=== PATIENT | male | born 1945 | race African-American/Black ===

== ENCOUNTER 2017-02-16 18:25 | Inpatient (IN) | payer MEDICARE, MEDICAID ==
[~2017-02-16] VITALS: Ht 177.8 cm; Wt 72.6 kg
[2017-02-16 18:25] VITALS: BP 156/86
[~2017-02-16 18:25] MED LIST: ATARAX25 MG ORAL; DIABETA5 MG ORAL; DIGOXIN125 MCG ORAL; HYDRALAZINE HCL50 MG ORAL; HYDROCHLOROTHIA25 MG ORAL; LEVEMIR100 UNIT/1 SUBQ; LIPITOR20 MG ORAL; LISINOPRIL40 MG ORAL; MAGNESIUM OXID400 M1 ORAL; METFORMIN HCL850 M1 ORAL; MILK OF MA400 MG/51 ORAL; MYLANTA30 M1 GT; NITROSTAT0.4 M1 SL; NORVASC10 MG ORAL; PLAVIX75 MG ORAL; POTASSIUM CHLO20 ME1 ORAL; RISPERDAL2 MG ORAL; TYLENOL325 MG ORAL
[2017-02-16] MEDS ORDERED: Mylanta II UD 30ml ORAL PRN (19:30)
[2017-02-16] MEDS ORDERED: Miralax 17gm pkt ORAL PRN (19:30)
[2017-02-16] MEDS ORDERED: Nitroglycerin Subl 0.4mg tab (Bottle Of 25) SL PRN (19:30)
[2017-02-16] MEDS ORDERED: LORazepam Inj 2mg/ml 1ml IV PRN (19:30)
[2017-02-16] MEDS ORDERED: Zolpidem 5mg tab ORAL PRN (19:30)
[2017-02-16] MEDS ORDERED: Morphine Sulfate 2mg/ml Inj IVP PRN (19:30)
--- NOTE | 2017-02-16 20:10 | Emergency Room Report ---
History of Present Illness General Chief Complaint: Pain Source: Medical Record Present Illness HPI 71 YO Male [facility] the ED from [facility] c/o 03/31 in low back pain x 2 weeks with abnormal x-ray showing lumbar compression. pt. states he fell onto his back over a week ago. pt. reports pain worse with walking and laying flat at night. pt. denies numbness or tingling in the extremities, denies difficulty urinating or abdominal pain. pt. denies fevers or chills. Pt. has hx of HTN, schizoaffective disorder, hyperlipidemia and DM. denies hx of neoplastic disease. Denies numbness tingling or loss of sensation or gross motor movements of the extremities, incontinence of bowel or bladder. Denies CP, Palpitations, LOC, AMS, dizziness, Changes in Vision, Sensation, paresthesias, or a sudden severe headache. Allergies: Coded Allergies: NO KNOWN ALLERGIES (Unverified Allergy, Unknown, 05/02/15) Patient History Past Medical History: see triage record Past Surgical History: none Pertinent Family History: none Immunizations: UTD Reviewed Nursing Documentation: PMH: Agreed, PSxH: Agreed Nursing Documentation-PMH Hx Cardiac Problems: Yes - A-fib; MO; Anemia Hx Hypertension: Yes Hx Diabetes: Yes Hx Cancer: No Hx Gastrointestinal Problems: No History Of Psychiatric Problem: Yes - Dementia; Schizoaffective Disorder Hx Neurological Problems: Yes Hx Cerebrovascular Accident: Yes - L side weakness Review of Systems All Other Systems: negative except mentioned in HPI Physical Exam Vital Signs Date Time Temp Pulse Resp B/P (MAP) Pulse Ox O2 Delivery O2 Flow Rate FiO2 02/16/17 18:08 98.2 80 20 121/73 96 Room Air Sp02 EP Interpretation: reviewed, normal General Appearance: no apparent distress, alert, GCS 15, non-toxic Head: normocephalic, atraumatic Eyes: bilateral eye normal inspection, bilateral eye PERRL ENT: hearing grossly normal, normal voice Neck: full range of motion Respiratory: lungs clear, normal breath sounds, speaking full sentences Cardiovascular #1: regular rate, rhythm, no edema Gastrointestinal: normal bowel sounds, non tender, soft, no guarding, no rebound Rectal: deferred Genitourinary: normal inspection, no CVA tenderness Musculoskeletal: back normal, gait/station normal, normal range of motion, tender - midline lumbar ttp. Neurologic: alert, oriented x3, responsive, motor strength/tone normal, sensory intact, speech normal, grossly normal Psychiatric: judgement/insight normal, memory normal, mood/affect normal Skin: normal color, no rash, warm/dry, well hydrated Medical Decision Making PA Attestation Dr. Escobar is my supervising Physician whom patient management has been discussed with. Diagnostic Impression: Primary Impression: Intractable low back pain Additional Impression: Fracture of body of vertebra ER Course Pt. presents to the ED c/o low back pain x 2 weeks. pt. states he fell onto his back over a week ago. pt. reports pain worse with walking and laying flat at night. pt. denies numbness or tingling in the extremities, denies difficulty urinating or abdominal pain. pt. denies fevers or chills. Ddx considered but are not limited to Fracture, dislocation, contusion, Sprain/ Strain/Spasm, Epidural abscess, Neoplastic mets. Vital signs: are WNL, pt. is afebrile H&PE are most consistent with musculoskeletal injury will perform imaging to r/ o fractures/dislocations. No gross Neurological Deficits, Sensation intact, no saddle anesthesia. ORDERS: - CT L-Spine NO Contrast: Fracture of the L1 vertebral body, unclear if acute , chronic or subacute, some edema in the soft tissues which may suggest acute or acute on chronic process, 70% loss of L1 vertebral height. mild posterior displacement causing some spinal canal stenosis, degenerative changes of the lumbar spine---per official radiology report. -CBC: WBC elevated 13.7 -CMP: elevated Glucose 238 ED INTERVENTIONS: - Tylenol PO DISPOSITION: at this time pt. will be admitted to Dr. Herring for Intractable Low back pain. Dr. Herring agreed to admit the pt. and to continue pt. care management. Labs Test 02/16/17 20:30 White Blood Count 13.7 K/UL (4.8-10.8) Red Blood Count 4.74 M/UL (4.70-6.10) Hemoglobin 12.5 G/DL (14.2-18.0) Hematocrit 38.8 % (42.0-52.0) Mean Corpuscular Volume 82 FL (80-99) Mean Corpuscular Hemoglobin 26.4 PG (27.0-31.0) Mean Corpuscular Hemoglobin Concent 32.2 G/DL (32.0-36.0) Red Cell Distribution Width 15.2 % (11.6-14.8) Platelet Count 307 K/UL (150-450) Mean Platelet Volume 8.1 FL (6.5-10.1) Neutrophils (%) (Auto) 59.9 % (45.0-75.0) Lymphocytes (%) (Auto) 31.1 % (20.0-45.0) Monocytes (%) (Auto) 4.3 % (1.0-10.0) Eosinophils (%) (Auto) 3.6 % (0.0-3.0) Basophils (%) (Auto) 1.1 % (0.0-2.0) Sodium Level 138 mEQ/L (135-145) Potassium Level 4.2 mEQ/L (3.4-4.9) Chloride Level 100 mEQ/L (98-107) Carbon Dioxide Level 26 mEQ/L (20-30) Anion Gap 12 (5-15) Blood Urea Nitrogen 25 mg/dL (7-23) Creatinine 1.2 mg/dL (0.7-1.2) Estimat Glomerular Filtration Rate mL/min (>60) Glucose Level 216 mg/dL (74-106) Calcium Level 9.2 mg/dL (8.6-10.2) Total Bilirubin 0.4 mg/dL (0.0-1.2) Aspartate Amino Transf (AST/SGOT) 12 U/L (5-40) Alanine Aminotransferase (ALT/SGPT) 7 U/L (3-41) Alkaline Phosphatase 107 U/L (40-129) Total Protein 7.1 g/dL (6.6-8.7) Albumin 3.8 g/dL (3.5-5.2) Globulin 3.3 g/dL Albumin/Globulin Ratio 1.1 (1.0-2.7) Last Vital Signs Date Time Temp Pulse Resp B/P (MAP) Pulse Ox O2 Delivery O2 Flow Rate FiO2 02/16/17 18:25 98.0 74 15 156/86 100 Room Air Disposition: ADMITTED INPATIENT Condition: Ca Capps Feb 16, 2017 20:10
[2017-02-16 20:57] LABS: BASOPHILS % (AUTO) 1.1 % (0.0-2.0); EOSINOPHILS % (AUTO) 3.6 % (0.0-3.0); LYMPHOCYTES % (AUTO) 31.1 % (20.0-45.0); MEAN CORPUSCULAR HEMOGLOBIN 26.4 PG (27.0-31.0); MEAN CORPUSCULAR HGB CONC 32.2 G/DL (32.0-36.0); MEAN CORPUSCULAR VOLUME 82 FL (80-99); MEAN PLATELET VOLUME 8.1 FL (6.5-10.1); MONOCYTES % (AUTO) 4.3 % (1.0-10.0); NEUTROPHILS % (AUTO) 59.9 % (45.0-75.0); PLATELET COUNT 307 K/UL (150-450); RED BLOOD COUNT 4.74 M/UL (4.70-6.10); RED CELL DISTRIBUTION WIDTH 15.2 % (11.6-14.8); WHITE BLOOD COUNT 13.7 K/UL (4.8-10.8)
[2017-02-16] MEDS ORDERED: Atorvastatin 20mg tab ORAL SCH (21:00)
[2017-02-16 21:12] LABS: ALANINE AMINOTRANSFERASE 7 U/L (3-41); ALBUMIN/GLOBULIN RATIO 1.1 (1.0-2.7); ANION GAP 12 (5-15); ASPARTATE AMINO TRANSFERASE 12 U/L (5-40); CALCIUM 9.2 mg/dL (8.6-10.2); CARBON DIOXIDE 26 mEQ/L (20-30); CHLORIDE 100 mEQ/L (98-107); CREATININE 1.2 mg/dL (0.7-1.2); HEMOLYSIS 3; POTASSIUM 4.2 mEQ/L (3.4-4.9); SODIUM 138 mEQ/L (135-145); TOTAL PROTEIN 7.1 g/dL (6.6-8.7)
[2017-02-16 22:30] VITALS: BP 138/72
[2017-02-16] MEDS: Atorvastatin 20mg tab ORAL SCH (23:08)
[2017-02-16] MEDS: NovoLOG Insulin Flexpen SUBQ SCH (23:09)
[2017-02-16] MEDS: Heparin 5000 units/ml inj SUBQ SCH (23:10)
[2017-02-17] VITALS: BP 128/67
[2017-02-17 04:00] VITALS: BP 136/77
[2017-02-17] MEDS: NovoLOG Insulin Flexpen SUBQ SCH ×4 (06:01→21:09)
[2017-02-17 06:49] LABS: BASOPHILS % (AUTO) 0.9 % (0.0-2.0); EOSINOPHILS % (AUTO) 5.3 % (0.0-3.0); LYMPHOCYTES % (AUTO) 29.6 % (20.0-45.0); MEAN CORPUSCULAR HEMOGLOBIN 26.7 PG (27.0-31.0); MEAN CORPUSCULAR HGB CONC 32.3 G/DL (32.0-36.0); MEAN CORPUSCULAR VOLUME 83 FL (80-99); MEAN PLATELET VOLUME 8.5 FL (6.5-10.1); MONOCYTES % (AUTO) 6.1 % (1.0-10.0); NEUTROPHILS % (AUTO) 58.1 % (45.0-75.0); PLATELET COUNT 262 K/UL (150-450); RED BLOOD COUNT 4.43 M/UL (4.70-6.10); RED CELL DISTRIBUTION WIDTH 14.8 % (11.6-14.8); WHITE BLOOD COUNT 11.9 K/UL (4.8-10.8)
[2017-02-17 07:04] LABS: ALANINE AMINOTRANSFERASE 7 U/L (3-41); ANION GAP 11 (5-15); ASPARTATE AMINO TRANSFERASE 11 U/L (5-40); CARBON DIOXIDE 24 mEQ/L (20-30); CHLORIDE 101 mEQ/L (98-107); CHOLESTEROL 127 mg/dL (< 200); CHOLESTEROL/HDL RATIO 3.8 (3.3-4.4); CREATININE 1.1 mg/dL (0.7-1.2); HEMOLYSIS 5; LDL CHOLESTEROL (CALC.) 79 mg/dL (60-99); POTASSIUM 3.6 mEQ/L (3.4-4.9); SODIUM 136 mEQ/L (135-145); TOTAL PROTEIN 6.4 g/dL (6.6-8.7)
[2017-02-17] MEDS ORDERED: Norco 5mg/325mg tab ORAL PRN (08:15)
--- NOTE | 2017-02-17 08:38 | Consultation ---
History of Present Illness General Date patient seen: Feb 17, 2017 Chief Complaint: Pain Present Illness Allergies: Coded Allergies: NO KNOWN ALLERGIES (Unverified Allergy, Unknown, 05/02/15) Medication History Scheduled Acetaminophen (Tylenol), 325 MG ORAL Q4HR, (Reported) Acetaminophen (Tylenol), 650 MG ORAL Q6H, (Reported) Al Hydroxide/mg Hydroxide (Mag-Al Liquid), 30 ML GT Q4HR, (Reported) Amlodipine Besylate (Norvasc), 10 MG ORAL DAILY, (Reported) Atorvastatin Calcium* (Lipitor*), 20 MG ORAL BEDTIME, (Reported) Clopidogrel Bisulfate* (Plavix*), 75 MG ORAL DAILY, (Reported) Digoxin* (Digoxin*), 125 MCG ORAL DAILY, (Reported) Glyburide* (Diabeta*), 5 MG ORAL TID, (Reported) Hydralazine Hcl* (Hydralazine Hcl*), 50 MG ORAL TID, (Reported) Hydrochlorothiazide* (Hydrochlorothiazide*), 25 MG ORAL DAILY, (Reported) Hydroxyzine HCl (Hydroxyzine HCl), 25 MG ORAL TID, (Reported) Insulin Detemir (Levemir), 20 UNITS SUBQ BEFORE DINNER, (Reported) Insulin Detemir (Levemir), 40 UNITS SUBQ ACBREAKFAST Lisinopril* (Lisinopril*), 40 MG ORAL DAILY, (Reported) Magnesium Oxide (Magnesium Oxide), 400 MG ORAL BID, (Reported) Metformin Hcl* (Metformin Hcl*), 850 MG ORAL BID, (Reported) Nitroglycerin (Nitrostat), 0.4 MG SL Q5M X3 DOSES, (Reported) Potassium Chloride* (K-Dur*), 20 MEQ ORAL DAILY, (Reported) Risperidone* (Risperdal*), 2 MG ORAL BID, (Reported) Scheduled PRN Magnesium Hydroxide* (Milk Of Magnesia*), 30 ML ORAL DAILY PRN for Constipation, (Reported) Patient History Healthcare decision maker Resuscitation status Advanced Directive on File Physical Exam Last 24 Hour Vital Signs Date Time Temp Pulse Resp B/P (MAP) Pulse Ox O2 Delivery O2 Flow Rate FiO2 02/17/17 04:00 98.0 81 18 136/77 97 Room Air 02/17/17 00:00 97.7 101 18 128/67 99 Room Air 02/16/17 22:30 97.7 88 18 138/72 100 Room Air 02/16/17 22:03 66 18 125/76 100 Room Air 02/16/17 18:25 98.0 74 15 156/86 100 Room Air 02/16/17 18:08 98.2 80 20 121/73 96 Room Air Laboratory Tests Test 02/16/17 20:30 02/17/17 05:05 White Blood Count 13.7 K/UL (4.8-10.8) H 11.9 K/UL (4.8-10.8) H Red Blood Count 4.74 M/UL (4.70-6.10) 4.43 M/UL (4.70-6.10) L Hemoglobin 12.5 G/DL (14.2-18.0) L 11.8 G/DL (14.2-18.0) L Hematocrit 38.8 % (42.0-52.0) L 36.5 % (42.0-52.0) L Mean Corpuscular Volume 82 FL (80-99) 83 FL (80-99) Mean Corpuscular Hemoglobin 26.4 PG (27.0-31.0) L 26.7 PG (27.0-31.0) L Mean Corpuscular Hemoglobin Concent 32.2 G/DL (32.0-36.0) 32.3 G/DL (32.0-36.0) Red Cell Distribution Width 15.2 % (11.6-14.8) H 14.8 % (11.6-14.8) Platelet Count 307 K/UL (150-450) 262 K/UL (150-450) Mean Platelet Volume 8.1 FL (6.5-10.1) 8.5 FL (6.5-10.1) Neutrophils (%) (Auto) 59.9 % (45.0-75.0) 58.1 % (45.0-75.0) Lymphocytes (%) (Auto) 31.1 % (20.0-45.0) 29.6 % (20.0-45.0) Monocytes (%) (Auto) 4.3 % (1.0-10.0) 6.1 % (1.0-10.0) Eosinophils (%) (Auto) 3.6 % (0.0-3.0) H 5.3 % (0.0-3.0) H Basophils (%) (Auto) 1.1 % (0.0-2.0) 0.9 % (0.0-2.0) Sodium Level 138 mEQ/L (135-145) 136 mEQ/L (135-145) Potassium Level 4.2 mEQ/L (3.4-4.9) 3.6 mEQ/L (3.4-4.9) Chloride Level 100 mEQ/L (98-107) 101 mEQ/L (98-107) Carbon Dioxide Level 26 mEQ/L (20-30) 24 mEQ/L (20-30) Anion Gap 12 (5-15) 11 (5-15) Blood Urea Nitrogen 25 mg/dL (7-23) H 25 mg/dL (7-23) H Creatinine 1.2 mg/dL (0.7-1.2) 1.1 mg/dL (0.7-1.2) Estimat Glomerular Filtration Rate mL/min (>60) mL/min (>60) Glucose Level 216 mg/dL (74-106) H 208 mg/dL (74-106) H Calcium Level 9.2 mg/dL (8.6-10.2) 9.0 mg/dL (8.6-10.2) Total Bilirubin 0.4 mg/dL (0.0-1.2) 0.3 mg/dL (0.0-1.2) Aspartate Amino Transf (AST/SGOT) 12 U/L (5-40) 11 U/L (5-40) Alanine Aminotransferase (ALT/SGPT) 7 U/L (3-41) 7 U/L (3-41) Alkaline Phosphatase 107 U/L (40-129) 97 U/L (40-129) Total Protein 7.1 g/dL (6.6-8.7) 6.4 g/dL (6.6-8.7) L Albumin 3.8 g/dL (3.5-5.2) 3.2 g/dL (3.5-5.2) L Globulin 3.3 g/dL 3.2 g/dL Albumin/Globulin Ratio 1.1 (1.0-2.7) 1.0 (1.0-2.7) Triglycerides Level 75 mg/dL (< 150) Cholesterol Level 127 mg/dL (< 200) LDL Cholesterol 79 mg/dL (60-99) HDL Cholesterol 33 mg/dL (> 60) Cholesterol/HDL Ratio 3.8 (3.3-4.4) Height (Feet): 5 Height (Inches): 10.00 Weight (Pounds): 160 Medications Current Medications Medications (Trade) Dose Ordered Sig/Lindsey Route PRN Reason Start Time Stop Time Status Last Admin Dose Admin Acetaminophen (Tylenol) 650 mg Q4H PRN ORAL fever 02/16/17 19:30 03/18/17 19:29 Acetaminophen/ Hydrocodone Bitart (Deale 5/325) 1 tab Q4H PRN ORAL Moderate Pain (Pain Scale 4-6) 02/17/17 08:15 02/24/17 08:14 Al Hydroxide/Mg Hydroxide (Mylanta II) 30 ml Q6H PRN ORAL dyspepsia 02/16/17 19:30 03/18/17 19:29 Amlodipine Besylate (Norvasc) 10 mg DAILY ORAL 02/17/17 09:00 03/19/17 08:59 Atorvastatin Calcium (Lipitor) 20 mg BEDTIME ORAL 02/16/17 23:00 03/18/17 22:59 02/16/17 23:08 Dextrose (Dextrose 50%) STAT PRN IV Hypoglycemia 02/16/17 19:30 03/18/17 19:29 Heparin Sodium (Porcine) (Heparin 5000 units/ml) 5,000 units EVERY 12 HOURS SUBQ 02/16/17 22:00 03/18/17 21:59 02/16/17 23:10 Hydralazine HCl (Apresoline) 50 mg TID ORAL 02/17/17 09:00 03/19/17 08:59 Insulin Aspart (NovoLOG) BEFORE MEALS AND HS SUBQ 02/17/17 00:00 03/19/17 00:00 02/17/17 06:01 Lidocaine (Lidoderm 5% PATCH) 1 patch DAILY TDERMAL 02/17/17 09:00 03/19/17 08:59 Lisinopril (Prinivil) 40 mg DAILY ORAL 02/17/17 09:00 03/19/17 08:59 Lorazepam (Ativan 2mg/ml 1ml) 0.5 mg Q4H PRN IV For Anxiety 02/16/17 19:30 02/23/17 19:29 Morphine Sulfate (Morphine Sulfate) 1 mg Q4H PRN IVP severe Pain 02/17/17 11:30 02/24/17 11:29 Nitroglycerin (Ntg) 0.4 mg Q5M PRN SL chest pain 02/16/17 19:30 03/18/17 19:29 Ondansetron HCl (Zofran) 4 mg Q6H PRN IVP Nausea & Vomiting 02/16/17 19:30 03/18/17 19:29 Polyethylene Glycol (Miralax) 17 gm HSPRN PRN ORAL Constipation 02/16/17 19:30 03/18/17 19:29 Risperidone (RisperDAL) 2 mg BID ORAL 02/17/17 09:00 03/19/17 08:59 Zolpidem Tartrate (Ambien) 5 mg HSPRN PRN ORAL Insomnia 02/16/17 19:30 02/23/17 19:29 Assessment/Plan Assessment/Plan (1) Intractable pain (2) L1 compression fracture (3) Lumbar spondylosis Seen dictated. JOSE SMITH Feb 17, 2017 08:38
[2017-02-17] MEDS: Lisinopril 20mg tab ORAL SCH (09:03)
[2017-02-17] MEDS: HydrALAZINE 50mg tab ORAL SCH ×3 (09:03→17:15)
[2017-02-17] MEDS: Heparin 5000 units/ml inj SUBQ SCH ×2 (09:05→21:00)
--- NOTE | 2017-02-17 09:43 | Diagnostic Imaging Report ---
Indication: Back pain Technique: Continuous helical transaxial imaging of the lumbar spine was obtained from the lung bases to the pubic symphysis. No IV contrast was administered. Coronal 2-D reformats were also obtained. Study obtained in a Siemens sensation [address] Total Dose length Product (DLP): [address] Dose Index Volume (CTDIvol): 13 mGy Comparison: None Findings: There is a moderate fracture of the L1 vertebra with some retropulsion of the posterior part of the cortex extending into the canal. The amount of retropulsion is mild, probably about 5 mm. There is some soft tissue swelling in the paravertebral region. There is sclerosis involving fracture lines indicating that there is a component of this fracture that is not acute. However given the soft tissue swelling and the appearance of portions of fragmented vertebra, I suspect there is an acute component to the injury. A better way of assessing for acuity is MR which could be obtained if there is consideration of kyphoplasty. There is about 40% loss of height due to the fracture. There is no angulation. The bones are osteopenic. No other fractures are seen. The height of the other vertebral bodies and discs appear normal. Aorta is moderately calcified. There is hypertrophy of some of the lumbar facets in a generalized fashion. Impression: Suspected acute fracture involving the L1 vertebra. This is probably an acute on chronic injury. Mild retropulsion noted. MRI should be confirmatory. Osteoporosis Facet arthropathy Atherosclerotic vascular disease [facility] has communicated the preliminary results to the Emergency Department. Their findings are largely concordant with this report. The CT scanner at [facility] is accredited by the [employer] and the scans are performed using dose optimization techniques as appropriate to a performed exam including Automatic Exposure control.
[2017-02-17 09:57] VITALS: BP 131/78
[2017-02-17] MEDS ORDERED: Morphine Sulfate 2mg/ml Inj IVP PRN (11:30)
[2017-02-17 13:45] VITALS: BP 113/75
[2017-02-17 16:53] VITALS: BP 118/79
[2017-02-17 20:00] VITALS: BP 107/56
[2017-02-17] MEDS: Atorvastatin 20mg tab ORAL SCH (21:10)
--- NOTE | 2017-02-17 22:44 | Consultation ---
History of Present Illness General Chief Complaint: Pain Present Illness Allergies: Coded Allergies: NO KNOWN ALLERGIES (Unverified Allergy, Unknown, 05/02/15) Medication History Scheduled Acetaminophen (Tylenol), 325 MG ORAL Q4HR, (Reported) Acetaminophen (Tylenol), 650 MG ORAL Q6H, (Reported) Al Hydroxide/mg Hydroxide (Mag-Al Liquid), 30 ML GT Q4HR, (Reported) Amlodipine Besylate (Norvasc), 10 MG ORAL DAILY, (Reported) Atorvastatin Calcium* (Lipitor*), 20 MG ORAL BEDTIME, (Reported) Clopidogrel Bisulfate* (Plavix*), 75 MG ORAL DAILY, (Reported) Digoxin* (Digoxin*), 125 MCG ORAL DAILY, (Reported) Glyburide* (Diabeta*), 5 MG ORAL TID, (Reported) Hydralazine Hcl* (Hydralazine Hcl*), 50 MG ORAL TID, (Reported) Hydrochlorothiazide* (Hydrochlorothiazide*), 25 MG ORAL DAILY, (Reported) Hydroxyzine HCl (Hydroxyzine HCl), 25 MG ORAL TID, (Reported) Insulin Detemir (Levemir), 20 UNITS SUBQ BEFORE DINNER, (Reported) Insulin Detemir (Levemir), 40 UNITS SUBQ ACBREAKFAST Lisinopril* (Lisinopril*), 40 MG ORAL DAILY, (Reported) Magnesium Oxide (Magnesium Oxide), 400 MG ORAL BID, (Reported) Metformin Hcl* (Metformin Hcl*), 850 MG ORAL BID, (Reported) Nitroglycerin (Nitrostat), 0.4 MG SL Q5M X3 DOSES, (Reported) Potassium Chloride* (K-Dur*), 20 MEQ ORAL DAILY, (Reported) Risperidone* (Risperdal*), 2 MG ORAL BID, (Reported) Scheduled PRN Magnesium Hydroxide* (Milk Of Magnesia*), 30 ML ORAL DAILY PRN for Constipation, (Reported) Patient History Healthcare decision maker Resuscitation status Advanced Directive on File Physical Exam Last 24 Hour Vital Signs Date Time Temp Pulse Resp B/P (MAP) Pulse Ox O2 Delivery O2 Flow Rate FiO2 02/17/17 20:00 98.1 86 20 107/56 98 Room Air 02/17/17 17:15 118/79 02/17/17 16:53 97.0 93 20 118/79 95 Room Air 02/17/17 13:45 97.3 91 20 113/75 100 Room Air 02/17/17 12:23 113/75 02/17/17 09:57 97.9 94 20 131/78 100 Room Air 02/17/17 09:03 136/77 02/17/17 09:03 136/77 02/17/17 09:02 81 136/77 02/17/17 04:00 98.0 81 18 136/77 97 Room Air 02/17/17 00:00 97.7 101 18 128/67 99 Room Air Intake and Output 02/17/17 02/18/17 19:00 07:00 Intake Total 1080 ml Output Total 320 ml Balance 760 ml Intake Oral 1080 ml Output Urine Total 320 ml # Voids 1 Laboratory Tests Test 02/17/17 05:05 White Blood Count 11.9 K/UL (4.8-10.8) H Red Blood Count 4.43 M/UL (4.70-6.10) L Hemoglobin 11.8 G/DL (14.2-18.0) L Hematocrit 36.5 % (42.0-52.0) L Mean Corpuscular Volume 83 FL (80-99) Mean Corpuscular Hemoglobin 26.7 PG (27.0-31.0) L Mean Corpuscular Hemoglobin Concent 32.3 G/DL (32.0-36.0) Red Cell Distribution Width 14.8 % (11.6-14.8) Platelet Count 262 K/UL (150-450) Mean Platelet Volume 8.5 FL (6.5-10.1) Neutrophils (%) (Auto) 58.1 % (45.0-75.0) Lymphocytes (%) (Auto) 29.6 % (20.0-45.0) Monocytes (%) (Auto) 6.1 % (1.0-10.0) Eosinophils (%) (Auto) 5.3 % (0.0-3.0) H Basophils (%) (Auto) 0.9 % (0.0-2.0) Sodium Level 136 mEQ/L (135-145) Potassium Level 3.6 mEQ/L (3.4-4.9) Chloride Level 101 mEQ/L (98-107) Carbon Dioxide Level 24 mEQ/L (20-30) Anion Gap 11 (5-15) Blood Urea Nitrogen 25 mg/dL (7-23) H Creatinine 1.1 mg/dL (0.7-1.2) Estimat Glomerular Filtration Rate mL/min (>60) Glucose Level 208 mg/dL (74-106) H Calcium Level 9.0 mg/dL (8.6-10.2) Total Bilirubin 0.3 mg/dL (0.0-1.2) Aspartate Amino Transf (AST/SGOT) 11 U/L (5-40) Alanine Aminotransferase (ALT/SGPT) 7 U/L (3-41) Alkaline Phosphatase 97 U/L (40-129) Total Protein 6.4 g/dL (6.6-8.7) L Albumin 3.2 g/dL (3.5-5.2) L Globulin 3.2 g/dL Albumin/Globulin Ratio 1.0 (1.0-2.7) Triglycerides Level 75 mg/dL (< 150) Cholesterol Level 127 mg/dL (< 200) LDL Cholesterol 79 mg/dL (60-99) HDL Cholesterol 33 mg/dL (> 60) Cholesterol/HDL Ratio 3.8 (3.3-4.4) Height (Feet): 5 Height (Inches): 10.00 Weight (Pounds): 160 Medications Current Medications Medications (Trade) Dose Ordered Sig/Lindsey Route PRN Reason Start Time Stop Time Status Last Admin Dose Admin Acetaminophen (Tylenol) 650 mg Q4H PRN ORAL fever 02/16/17 19:30 03/18/17 19:29 Acetaminophen/ Hydrocodone Bitart ([place]ickard 5/325) 1 tab Q4H PRN ORAL Moderate Pain (Pain Scale 4-6) 02/17/17 08:15 02/24/17 08:14 Al Hydroxide/Mg Hydroxide (Mylanta II) 30 ml Q6H PRN ORAL dyspepsia 02/16/17 19:30 03/18/17 19:29 Amlodipine Besylate (Norvasc) 10 mg DAILY ORAL 02/17/17 09:00 03/19/17 08:59 02/17/17 09:02 Atorvastatin Calcium (Lipitor) 20 mg BEDTIME ORAL 02/16/17 23:00 03/18/17 22:59 02/17/17 21:10 Dextrose (Dextrose 50%) STAT PRN IV Hypoglycemia 02/16/17 19:30 03/18/17 19:29 Heparin Sodium (Porcine) (Heparin 5000 units/ml) 5,000 units EVERY 12 HOURS SUBQ 02/16/17 22:00 03/18/17 21:59 02/17/17 09:05 Hydralazine HCl (Apresoline) 50 mg TID ORAL 02/17/17 09:00 03/19/17 08:59 02/17/17 17:15 Insulin Aspart (NovoLOG) BEFORE MEALS AND HS SUBQ 02/17/17 00:00 03/19/17 00:00 02/17/17 21:09 Lidocaine (Lidoderm 5% PATCH) 1 patch DAILY TDERMAL 02/17/17 09:00 03/19/17 08:59 02/17/17 09:06 Lisinopril (Prinivil) 40 mg DAILY ORAL 02/17/17 09:00 03/19/17 08:59 02/17/17 09:03 Lorazepam (Ativan 2mg/ml 1ml) 0.5 mg Q4H PRN IV For Anxiety 02/16/17 19:30 02/23/17 19:29 Lorazepam (Ativan 2mg/ml 1ml) 1 mg ONCE ONCE IV 02/18/17 06:00 02/18/17 06:01 Morphine Sulfate (Morphine Sulfate) 1 mg Q4H PRN IVP severe Pain 02/17/17 11:30 02/24/17 11:29 Nitroglycerin (Ntg) 0.4 mg Q5M PRN SL chest pain 02/16/17 19:30 03/18/17 19:29 Ondansetron HCl (Zofran) 4 mg Q6H PRN IVP Nausea & Vomiting 02/16/17 19:30 03/18/17 19:29 Polyethylene Glycol (Miralax) 17 gm HSPRN PRN ORAL Constipation 02/16/17 19:30 03/18/17 19:29 Risperidone (RisperDAL) 4 mg BEDTIME ORAL 02/18/17 21:00 03/19/17 08:59 Zolpidem Tartrate (Ambien) 5 mg HSPRN PRN ORAL Insomnia 02/16/17 19:30 02/23/17 19:29 BHARGAVI MACIEL Feb 17, 2017 22:44
--- NOTE | 2017-02-18 00:30 | History and Physical Report ---
DATE OF ADMISSION: 02/16/2017 TIME OF EVALUATION: At 2 p.m. CONSULTANTS: 1. Theodore Mccoy M.D. 2. Gianfranco Daily M.D. 3. Dr. Flores. 4. Cholo Ken M.D. CHIEF COMPLAINT: Low back pain, diabetes, and hypertension. BRIEF HISTORY: This is a 71-year-old male from [facility], presented with above-mentioned diagnosis, admitted to medical floor for further treatment. Currently, slightly confused, in bed. Slight back pain. No complaints. PAST MEDICAL HISTORY: Encephalopathy, low back pain, diabetes, and hypertension. PAST SURGICAL HISTORY: None. MEDICATIONS: Morphine, Norvasc, Apresoline, Prinivil, Risperdal, Shannon, NovoLog, Lipitor, Heparin, nitroglycerin, and Tylenol. ALLERGIES: Denies. SOCIAL HISTORY: No smoke. No alcohol. No intravenous drug abuse. FAMILY HISTORY: Noncontributory. REVIEW OF SYSTEMS: No chest pain. No shortness of breath. No nausea, vomiting, or diarrhea. PHYSICAL EXAMINATION: GENERAL: Calm in bed, oriented x2, no acute distress. VITAL SIGNS: Temperature is 97 degrees, pulse 91, respiratory rate 20, blood pressure and 113/75. CARDIOVASCULAR: No murmurs. LUNGS: Distant and clear. ABDOMEN: Bowel sounds are positive. Nontender and nondistended. EXTREMITIES: No cyanosis, clubbing, or edema. NEUROLOGICAL: The patient moves all extremities, slightly weak. LABORATORY DATA: White count is 11.9, hemoglobin and hematocrit 11 and 36, and platelets 262,000. BMP show BUN 25 and glucose 208, otherwise normal. Albumin is 3.2. ASSESSMENT: 1. Low back pain. 2. Encephalopathy. 3. Diabetes. 4. Hypertension. 5. Anemia. 6. Leukocytosis. PLAN: Continue premeds. Pain control. OT/PT. Dietary evaluation. CBC and BMP in the morning. Dr. Mccoy, Dr. Daily, Dr. Flores, Dr. Ken, Dr. Sherman to consult. Jeancarlos Herring D.O. DR: LILLIAN/dino JOB#: [id number] CC:
[2017-02-18] MEDS: NovoLOG Insulin Flexpen SUBQ SCH ×4 (05:55→20:24)
[2017-02-18] MEDS ORDERED: LORazepam Inj 2mg/ml 1ml IV ONE (06:00)
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
--- NOTE | 2017-02-18 08:11 | General Progress Note ---
Assessment/Plan Assessment/Plan (1) Intractable pain (2) L1 compression fracture (3) Lumbar spondylosis Pt will be continued on [place] and Morphine as needed. D/w Dr. Daily and he concurred. Subjective Date patient seen: Feb 18, 2017 Time patient seen: 07:45 - am Allergies: Coded Allergies: NO KNOWN ALLERGIES (Unverified Allergy, Unknown, 05/02/15) Subjective REVIEW OF SYSTEMS: Denies rash, fever, chills, sweating, dizziness, drowsiness, blurred vision, sore throat, or change in weight. No shortness of breath or chest pain. No nausea, vomiting, or blood in stool or urine. No dysuria. He is complaining of low back pain. SUBJECTIVE: Pt reports that the pain is unchanged and tolerated on the medications doing PT. Refused the MRI and was seen by Ortho. Objective Last 24 Hour Vital Signs Date Time Temp Pulse Resp B/P (MAP) Pulse Ox O2 Delivery O2 Flow Rate FiO2 02/17/17 20:00 98.1 86 20 107/56 98 Room Air 02/17/17 17:15 118/79 02/17/17 16:53 97.0 93 20 118/79 95 Room Air 02/17/17 13:45 97.3 91 20 113/75 100 Room Air 02/17/17 12:23 113/75 02/17/17 09:57 97.9 94 20 131/78 100 Room Air 02/17/17 09:03 136/77 02/17/17 09:03 136/77 02/17/17 09:02 81 136/77 Height (Feet): 5 Height (Inches): 10.00 Weight (Pounds): 160 Objective GENERAL: Alert, awake, and oriented. HEENT: PERRLA. NECK: Range of motion is full in all directions. No tenderness to paracervical muscles. No adenopathy. LUNGS: Clear. HEART: S1 and S2 regular. ABDOMEN: Benign. BACK: Range of motion is decreased in flexion and extension with tenderness to paraspinal muscles. No tenderness to trapezius or rhomboid muscles. EXTREMITIES: No cyanosis. No clubbing. JOSE SMITH Feb 18, 2017 08:11
[2017-02-18 08:14] VITALS: BP 151/63
[2017-02-18] MEDS: Lisinopril 20mg tab ORAL SCH (08:49)
[2017-02-18] MEDS: HydrALAZINE 50mg tab ORAL SCH ×3 (08:49→18:00)
[2017-02-18] MEDS: Heparin 5000 units/ml inj SUBQ SCH ×2 (08:55→20:23)
--- NOTE | 2017-02-18 09:01 | Consultation ---
DATE OF CONSULTATION: 02/17/2017 PAIN MANAGEMENT CONSULTATION CONSULTING PHYSICIAN: Gianfranco Daily M.D. PHYSICIAN POKER MANAGER: Chip Barron REFERRING PHYSICIAN: Jeancarlos Herring D.O. CHIEF COMPLAINT/REASON FOR CONSULTATION: Low back pain. HISTORY OF PRESENT ILLNESS: This is a 71-year-old male who is being seen on the medical/surgical floor of [facility] for initial comprehensive pain management consultation. The patient reports that he has been having lower back pain. He states that it is a constant acute pain, rating at 7/10, described as an aching throbbing pain, increased with movement, and nothing helped with his pain. Was transferred from the SN[facility], rating his pain at 10 out of 10 at this time, at its worst with movement. Due to this, he was admitted from the SNF to the ER and to the hospital under the care of Dr. Herring. X-ray was done showing compression fracture. Now CT scan showed 40% height loss with mild retropulsion at 5 mm. This was discussed with the patient. I discussed with the patient about ordering MRI of lumbar spine and adding Lidoderm patch and some [place] 5 mg. He agrees with the plan and he has no new complaints. PAST MEDICAL HISTORY: Diabetes mellitus, hypertension, schizoaffective disorder, and history of CVA. PAST SURGICAL HISTORY: Denies. SOCIAL HISTORY: He has a history of smoking tobacco. Denies alcohol or IV drug abuse. ALLERGIES: No known drug allergies. MEDICATIONS: Tylenol, Norvasc, Lipitor, Plavix, digoxin, hydralazine, hydrochlorothiazide, Levemir, lisinopril, magnesium, metformin, Nitrostat, K-Dur, and Risperdal. REVIEW OF SYSTEMS: Denies rash, fever, chills, sweating, dizziness, drowsiness, blurred vision, sore throat, or change in weight. No shortness of breath or chest pain. No nausea, vomiting, or blood in stool or urine. No dysuria. He is complaining of low back pain. PHYSICAL EXAMINATION: GENERAL: Alert, awake, and oriented. VITAL SIGNS: Blood pressure is 136/ , heart rate is 81, oxygen saturation 97%, respiratory rate is 18, and temperature 98 degrees Fahrenheit. Height is 5 feet and 10 inches. Weight is 175 pounds. HEENT: PERRLA. NECK: Range of motion is full in all directions. No tenderness to paracervical muscles. No adenopathy. LUNGS: Clear. HEART: S1 and S2 regular. ABDOMEN: Benign. BACK: Range of motion is decreased in flexion and extension with tenderness to paraspinal muscles. No tenderness to trapezius or rhomboid muscles. EXTREMITIES: Upper extremity range of motion is full in all direction. Motor is intact. No cyanosis. No clubbing. No edema. Sensory is intact. Reflexes are not obtainable. No adenopathy. Lower extremity motion is decreased due to the patient's pain and condition. No cyanosis. No clubbing. Sensory is intact. Reflexes are not obtainable. No adenopathy. ASSESSMENT AND PLAN: This is a 71-year-old male with intractable pain with L1 compression fracture and lumbar spondylosis. At this time, we will start the patient on [place] 5/325 mg 1 tablet every 4 hours as needed for severe pain. Lidoderm patch to be applied to the lower back at the site of the pain, 12 hours on and 12 hours off. Continue the morphine 1 mg IV every 4 hours as needed for severe pain and order MRI of lumbar spine without contrast to further assess for the lower back pain and compression fracture to rule out any cord compression. At this time, discussed the care with nurse. We recommend the patient be seen by neurosurgical consultation. The patient was discussed with Dr. Daily and Dr. Daily concurred. We will follow the patient. Thank you very much for the courtesy of this consultation. Gianfranco Daily M.D. JAIME Barron DR: Mounika JOB#: [id number] CC:
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
[2017-02-18 12:21] VITALS: BP 134/70
--- NOTE | 2017-02-18 12:52 | General Progress Note ---
Assessment/Plan Problem List: (1) Fracture of body of vertebra SNOMED: 932075028 (2) Intractable low back pain ICD Codes: M54.5 - Low back pain SNOMED: 43002044879975601 (3) Generalized weakness ICD Codes: R53.1 - Weakness SNOMED: 63772793 (4) Failure to thrive ICD Codes: R62.51 - Failure to thrive (child) SNOMED: 88422251 Status: stable, progressing, tolerating diet Assessment/Plan ot pt diet pain control cbc bmp am dc plan Subjective Constitutional: Reports: weakness Allergies: Coded Allergies: NO KNOWN ALLERGIES (Unverified Allergy, Unknown, 05/02/15) All Systems: reviewed and negative except above Subjective calm in bed Objective Last 24 Hour Vital Signs Date Time Temp Pulse Resp B/P (MAP) Pulse Ox O2 Delivery O2 Flow Rate FiO2 02/18/17 12:21 97.0 67 20 134/70 98 Room Air 02/18/17 11:38 97.0 02/18/17 08:49 151/63 02/18/17 08:49 151/63 02/18/17 08:49 86 151/63 02/18/17 08:14 97.5 20 151/63 98 Room Air 02/17/17 20:00 98.1 86 20 107/56 98 Room Air 02/17/17 17:15 118/79 02/17/17 16:53 97.0 93 20 118/79 95 Room Air 02/17/17 13:45 97.3 91 20 113/75 100 Room Air Height (Feet): 5 Height (Inches): 10.00 Weight (Pounds): 160 General Appearance: alert EENT: normal ENT inspection Neck: normal alignment Cardiovascular: normal peripheral pulses, normal rate, regular rhythm Respiratory/Chest: chest wall non-tender, lungs clear, normal breath sounds Abdomen: normal bowel sounds, non tender, soft Extremities: normal inspection Edema: no edema noted Arm (L), no edema noted Arm (R), no edema noted Leg (L), no edema noted Leg (R), no edema noted Pedal (L), no edema noted Pedal (R), no edema noted Generalized Neurologic: responsive, motor weakness Skin: normal pigmentation, warm/dry ROSCOE PRESTON Feb 18, 2017 12:52
--- NOTE | 2017-02-18 12:56 | Diagnostic Imaging Report ---
Indication: L1 fracture back pain Technique: MRI examination of the Lumbar spine was performed in a 1.5 [place] magnet. Sequences obtained include sagittal and axial T1 and T2 fast spin echo, and sagittal STIR. No IV gadolinium was given Comparison: CT lumbar spine 02/16/17 Findings: There is a moderate compression fracture of L1 vertebra which is diminished in height by about 50%. There is T2 hyperintensity/T1 hypointensity within the visualized noncompressed portion of the vertebra consistent with bone marrow edema and indicative of an acute fracture. There is edema within the vertebral body itself. There is edema within the pedicles bilaterally. The fracture is transpedicular on the right. There are old transverse osseous fractures bilaterally. There is retropulsion that is mild compressing the anterior part thecal sac. There is slight abutting of the distal aspect of the spinal cord which terminates at about this level. The tip of the conus is seen just at the lower margin of the L1 vertebra. There is no evidence of spinal cord edema or significant compression. There is no disc herniation. There is moderate hypertrophy of the lumbar facets at multiple levels. This results in multilevel foraminal stenosis and narrowing of the lateral recess. Impression: Acute L1 vertebral fracture with 50% loss of height, mild retropulsion and slight abutting of the cord. The fracture is probably acute on chronic. Multilevel facet arthropathy and narrowing of the neural foramen and lateral recess degenerative in nature.
--- NOTE | 2017-02-18 18:50 | Pulmonology Progress Note ---
Assessment/Plan Problems: (1) Vertebral fracture, closed (2) Failure to thrive (3) Generalized weakness (4) Intractable low back pain Assessment/Plan pt refuses spine surgery evaluation pain management all ntes reviewed d/w consultants. Subjective ROS Limited/Unobtainable: No Interval Events: comfortable Allergies: Coded Allergies: NO KNOWN ALLERGIES (Unverified Allergy, Unknown, 05/02/15) Objective Last 24 Hour Vital Signs Date Time Temp Pulse Resp B/P (MAP) Pulse Ox O2 Delivery O2 Flow Rate FiO2 02/18/17 13:38 134/70 02/18/17 12:21 97.0 67 20 134/70 98 Room Air 02/18/17 11:38 97.0 02/18/17 08:49 151/63 02/18/17 08:49 151/63 02/18/17 08:49 86 151/63 02/18/17 08:14 97.5 20 151/63 98 Room Air 02/17/17 20:00 98.1 86 20 107/56 98 Room Air Intake and Output 02/18/17 02/19/17 19:00 07:00 Intake Total 480 ml Balance 480 ml Intake Oral 480 ml # Voids 5 General Appearance: cachetic HEENT: normocephalic, atraumatic Respiratory/Chest: chest wall non-tender, lungs clear Cardiovascular: normal peripheral pulses, normal rate Abdomen: normal bowel sounds, soft, non tender Genitourinary: normal external genitalia Extremities: no clubbing Neurologic/Psychiatric: company controller II-XII grossly normal Current Medications Medications (Trade) Dose Ordered Sig/Lindsey Route PRN Reason Start Time Stop Time Status Last Admin Dose Admin Acetaminophen (Tylenol) 650 mg Q4H PRN ORAL fever 02/16/17 19:30 03/18/17 19:29 Acetaminophen/ Hydrocodone Bitart ([place] 5/325) 1 tab Q4H PRN ORAL Moderate Pain (Pain Scale 4-6) 02/17/17 08:15 02/24/17 08:14 02/18/17 10:39 Al Hydroxide/Mg Hydroxide (Mylanta II) 30 ml Q6H PRN ORAL dyspepsia 02/16/17 19:30 03/18/17 19:29 Amlodipine Besylate (Norvasc) 10 mg DAILY ORAL 02/17/17 09:00 03/19/17 08:59 02/18/17 08:49 Atorvastatin Calcium (Lipitor) 20 mg BEDTIME ORAL 02/16/17 23:00 03/18/17 22:59 02/17/17 21:10 Dextrose (Dextrose 50%) STAT PRN IV Hypoglycemia 02/16/17 19:30 03/18/17 19:29 Heparin Sodium (Porcine) (Heparin 5000 units/ml) 5,000 units EVERY 12 HOURS SUBQ 02/16/17 22:00 03/18/17 21:59 02/18/17 08:55 Hydralazine HCl (Apresoline) 50 mg TID ORAL 02/17/17 09:00 03/19/17 08:59 02/18/17 13:38 Insulin Aspart (NovoLOG) BEFORE MEALS AND HS SUBQ 02/17/17 00:00 03/19/17 00:00 02/18/17 12:15 Lidocaine (Lidoderm 5% PATCH) 1 patch DAILY TDERMAL 02/17/17 09:00 03/19/17 08:59 02/18/17 08:57 Lisinopril (Prinivil) 40 mg DAILY ORAL 02/17/17 09:00 03/19/17 08:59 02/18/17 08:49 Lorazepam (Ativan 2mg/ml 1ml) 0.5 mg Q4H PRN IV For Anxiety 02/16/17 19:30 02/23/17 19:29 Morphine Sulfate (Morphine Sulfate) 1 mg Q4H PRN IVP severe Pain 02/17/17 11:30 02/24/17 11:29 Nitroglycerin (Ntg) 0.4 mg Q5M PRN SL chest pain 02/16/17 19:30 03/18/17 19:29 Ondansetron HCl (Zofran) 4 mg Q6H PRN IVP Nausea & Vomiting 02/16/17 19:30 03/18/17 19:29 Polyethylene Glycol (Miralax) 17 gm HSPRN PRN ORAL Constipation 02/16/17 19:30 03/18/17 19:29 Risperidone (RisperDAL) 4 mg BEDTIME ORAL 02/18/17 21:00 03/19/17 08:59 Zolpidem Tartrate (Ambien) 5 mg HSPRN PRN ORAL Insomnia 02/16/17 19:30 02/23/17 19:29 BHARGAVI MACIEL Feb 18, 2017 18:50
[2017-02-18 20:00] VITALS: BP 130/75
[2017-02-18] MEDS: Atorvastatin 20mg tab ORAL SCH (20:20)
--- NOTE | 2017-02-19 00:06 | General Progress Note ---
Assessment/Plan Status: stable, progressing Assessment/Plan the pt was more cooperative and less irritable -cont current tx Subjective Date patient seen: Feb 18, 2017 Constitutional: Reports: malaise, weakness Neurologic/Psychiatric: Reports: anxiety, depressed, emotional problems Allergies: Coded Allergies: NO KNOWN ALLERGIES (Unverified Allergy, Unknown, 05/02/15) Objective Last 24 Hour Vital Signs Date Time Temp Pulse Resp B/P (MAP) Pulse Ox O2 Delivery O2 Flow Rate FiO2 02/18/17 20:00 98.2 73 18 130/75 100 Room Air 02/18/17 13:38 134/70 02/18/17 12:21 97.0 67 20 134/70 98 Room Air 02/18/17 11:38 97.0 02/18/17 08:49 151/63 02/18/17 08:49 151/63 02/18/17 08:49 86 151/63 02/18/17 08:14 97.5 20 151/63 98 Room Air Height (Feet): 5 Height (Inches): 10.00 Weight (Pounds): 160 General Appearance: no apparent distress, alert, overweight Neurologic: alert, oriented x 3, responsive, depressed affect Rebeca David M.D. Feb 19, 2017 00:06
--- NOTE | 2017-02-19 01:30 | Consultation ---
DATE OF CONSULTATION: 02/17/2017 CONSULTING PHYSICIAN: Davis Shultz M.D. TREATING ATTENDING PHYSICIAN: Jeancarlos Herring D.O. HISTORY OF PRESENT ILLNESS: The patient is a 71-year-old male patient from [facility]. The patient was admitted to the hospital due to lower back pain, diabetes, and hypertension. The patient has a history of paranoid schizophrenia with some agitation and irritability and for the treatment, he is referred for psychotherapy services. This clinician assessed this patient. The patient is slightly confused, disorganized, forgetful, and irritable. However, denies suicidal or homicidal thoughts of ideation at this time. The patient, however, remains confused. PAST MEDICAL HISTORY: Includes a history of diabetes, encephalopathy, lower back pain, and hypertension. ALLERGIES: The patient has no known drug allergies. SUBSTANCE ABUSE HISTORY: There is no indication of alcohol use, illicit substance use, or smoking cigarettes. PSYCHIATRIC HISTORY: The patient has a history of paranoid schizophrenia. The patient has had inpatient psychiatric hospitalizations in the past. SOCIAL HISTORY: The patient is a 71-year-old male patient from [facility]. Financially sustained through Medicare and [employer]. MENTAL STATUS EXAMINATION: The patient is alert and oriented x2 to person and place. His mood is anxious. Affect is congruent. Thought process is disorganized. Thought content is confused. He has had poor attention and concentration. Poor insight, judgment, and impulse control. The clinician assessed this patient, provided the patient with reality orientation and supportive psychotherapy, and assessed the patient's mental status. DIAGNOSES: [place] I Paranoid schizophrenia. [place] II Deferred. [place] III Per History and Physical. PLAN: Continue with medication management and behavioral management. This clinician has reviewed the patient's chart and discussed the treatment with the nursing staff. Davis Shultz PsyD. : NICK JOB#: [id number] CC:
[2017-02-19 06:28] LABS: BASOPHILS % (AUTO) 1.1 % (0.0-2.0); EOSINOPHILS % (AUTO) 6.2 % (0.0-3.0); LYMPHOCYTES % (AUTO) 31.9 % (20.0-45.0); MEAN CORPUSCULAR HGB CONC 31.7 G/DL (32.0-36.0); MEAN CORPUSCULAR VOLUME 82 FL (80-99); MEAN PLATELET VOLUME 7.9 FL (6.5-10.1); MONOCYTES % (AUTO) 6.3 % (1.0-10.0); NEUTROPHILS % (AUTO) 54.6 % (45.0-75.0); PLATELET COUNT 290 K/UL (150-450); RED BLOOD COUNT 4.44 M/UL (4.70-6.10); RED CELL DISTRIBUTION WIDTH 14.8 % (11.6-14.8); WHITE BLOOD COUNT 10.2 K/UL (4.8-10.8)
[2017-02-19] MEDS: NovoLOG Insulin Flexpen SUBQ SCH ×4 (06:30→22:06)
[2017-02-19 06:41] LABS: ANION GAP 12 (5-15); CALCIUM 8.7 mg/dL (8.6-10.2); CARBON DIOXIDE 25 mEQ/L (20-30); CHLORIDE 103 mEQ/L (98-107); HEMOLYSIS 4; POTASSIUM 3.9 mEQ/L (3.4-4.9); SODIUM 140 mEQ/L (135-145)
[2017-02-19 08:08] VITALS: BP 117/62
[2017-02-19] MEDS: HydrALAZINE 50mg tab ORAL SCH ×3 (08:15→18:44)
[2017-02-19] MEDS: Heparin 5000 units/ml inj SUBQ SCH ×2 (08:16→22:02)
--- NOTE | 2017-02-19 08:45 | Progress Note ---
DATE: 02/18/2017 SUBJECTIVE: The patient had an MRI of his lumbar spine. The patient otherwise has not had any acute changes overnight. OBJECTIVE: Examination shows the patient has baseline cognitive issues. He has pain and tenderness of his lumbar spine. The remaining exam is limited. The patient is somewhat confused or agitated. DIAGNOSTIC DATA: MRI of the lumbar spine reviewed. It showed what appears to be acute L1 vertebral body fracture with slight retropulsion of the fracture fragment, questionable signal changes. ASSESSMENT: Acute L1 vertebral body fracture. DISCUSSION: At this point, the fracture occurred almost 3 weeks ago when he fell. He has been neurovascularly intact, although the compression fracture represents approximately 50%. I do not think he is definitely a candidate for any type of operative intervention. He is extremely high risk for any type of intervention. At this point, we need a thoracolumbar or lumbar corset brace for support, which I do not think the patient will wear. The patient will continue physical therapy. With the use of walker, the patient has been ambulating for the last three weeks. Given question of whether or not there is any signal change along the cord, I will discuss with the PMD to maybe consideration to get a spine consultation. I think the fascia will heal without any clinical consequences. The patient can still begin weightbearing trial with the use of a walker. He has moderate discomfort, probably lumbar corset brace may be helpful. Jimenez Flores M.D. DR: FRANCESCA JOB#: [id number] CC: [email or web address]
--- NOTE | 2017-02-19 08:46 | Consultation ---
Consult Note Consult Note L1 compression fx Assessment/Plan l1 comp fx TLSO vs wilberto vs KIRSTY WINSTON Feb 19, 2017 08:46
[2017-02-19] MEDS: Lisinopril 20mg tab ORAL SCH (11:36)
--- NOTE | 2017-02-19 11:55 | General Progress Note ---
Assessment/Plan Problem List: (1) Fracture of body of vertebra SNOMED: 592809672 (2) Intractable low back pain ICD Codes: M54.5 - Low back pain SNOMED: 08668240277664524 (3) Generalized weakness ICD Codes: R53.1 - Weakness SNOMED: 04416791 (4) Failure to thrive ICD Codes: R62.51 - Failure to thrive (child) SNOMED: 13540557 Status: stable, progressing, tolerating diet Assessment/Plan ot pt diet pain control cbc bmp am dc if clear by sx Subjective Constitutional: Reports: weakness Allergies: Coded Allergies: NO KNOWN ALLERGIES (Unverified Allergy, Unknown, 05/02/15) All Systems: reviewed and negative except above Subjective calm in bed Objective Last 24 Hour Vital Signs Date Time Temp Pulse Resp B/P (MAP) Pulse Ox O2 Delivery O2 Flow Rate FiO2 02/19/17 11:36 137/84 02/19/17 11:33 89 137/84 02/19/17 08:15 117/62 02/19/17 08:08 97.5 102 117/62 98 Room Air 02/18/17 20:00 98.2 73 18 130/75 100 Room Air 02/18/17 13:38 134/70 02/18/17 12:21 97.0 67 20 134/70 98 Room Air Laboratory Tests 02/19/17 05:20: White Blood Count 10.2, Red Blood Count 4.44L, Hemoglobin 11.6L, Hematocrit 36.4L, Mean Corpuscular Volume 82, Mean Corpuscular Hemoglobin 26.0L, Mean Corpuscular Hemoglobin Concent 31.7L, Red Cell Distribution Width 14.8, Platelet Count 290, Mean Platelet Volume 7.9, Neutrophils (%) (Auto) 54.6, Lymphocytes (%) (Auto) 31.9, Monocytes (%) (Auto) 6.3, Eosinophils (%) (Auto) 6.2H, Basophils (%) (Auto) 1.1, Sodium Level 140, Potassium Level 3.9, Chloride Level 103, Carbon Dioxide Level 25, Anion Gap 12, Blood Urea Nitrogen 15, Creatinine 1.0, Estimat Glomerular Filtration Rate , Glucose Level 152H, Calcium Level 8.7 Height (Feet): 5 Height (Inches): 10.00 Weight (Pounds): 160 General Appearance: lethargic EENT: normal ENT inspection Neck: normal alignment Cardiovascular: normal peripheral pulses, normal rate, regular rhythm Respiratory/Chest: chest wall non-tender, lungs clear, normal breath sounds Abdomen: normal bowel sounds, non tender, soft Extremities: normal inspection Edema: no edema noted Arm (L), no edema noted Arm (R), no edema noted Leg (L), no edema noted Leg (R), no edema noted Pedal (L), no edema noted Pedal (R), no edema noted Generalized Neurologic: motor weakness Skin: normal pigmentation, warm/dry ROSCOE PRESTON Feb 19, 2017 11:55
[2017-02-19 12:00] VITALS: BP 137/84
[2017-02-19 16:00] VITALS: BP 123/73
--- NOTE | 2017-02-19 16:35 | Pulmonology Progress Note ---
Assessment/Plan Problems: (1) Vertebral fracture, closed (2) Failure to thrive (3) Generalized weakness (4) Intractable low back pain Assessment/Plan pt refuses spine surgery evaluation awaiting for braces pain management all ntes reviewed d/w consultants. dc to [place] pending Subjective ROS Limited/Unobtainable: No Constitutional: Reports: no symptoms HEENT: Repors: no symptoms Allergies: Coded Allergies: NO KNOWN ALLERGIES (Unverified Allergy, Unknown, 05/02/15) Objective Last 24 Hour Vital Signs Date Time Temp Pulse Resp B/P (MAP) Pulse Ox O2 Delivery O2 Flow Rate FiO2 02/19/17 16:00 98.1 75 19 123/73 Room Air 02/19/17 14:39 130/65 02/19/17 12:00 97.7 70 18 137/84 99 Room Air 02/19/17 11:36 137/84 02/19/17 11:33 89 137/84 02/19/17 08:15 117/62 02/19/17 08:08 97.5 102 117/62 98 Room Air 02/18/17 20:00 98.2 73 18 130/75 100 Room Air General Appearance: WD/WN HEENT: normocephalic, atraumatic Respiratory/Chest: chest wall non-tender, lungs clear Cardiovascular: normal peripheral pulses, normal rate Abdomen: normal bowel sounds, soft, non tender Genitourinary: normal external genitalia Skin: no lesions Neurologic/Psychiatric: 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 grossly normal Laboratory Tests 02/19/17 05:20: White Blood Count 10.2, Red Blood Count 4.44L, Hemoglobin 11.6L, Hematocrit 36.4L, Mean Corpuscular Volume 82, Mean Corpuscular Hemoglobin 26.0L, Mean Corpuscular Hemoglobin Concent 31.7L, Red Cell Distribution Width 14.8, Platelet Count 290, Mean Platelet Volume 7.9, Neutrophils (%) (Auto) 54.6, Lymphocytes (%) (Auto) 31.9, Monocytes (%) (Auto) 6.3, Eosinophils (%) (Auto) 6.2H, Basophils (%) (Auto) 1.1, Sodium Level 140, Potassium Level 3.9, Chloride Level 103, Carbon Dioxide Level 25, Anion Gap 12, Blood Urea Nitrogen 15, Creatinine 1.0, Estimat Glomerular Filtration Rate , Glucose Level 152H, Calcium Level 8.7 Current Medications Medications (Trade) Dose Ordered Sig/Lindsey Route PRN Reason Start Time Stop Time Status Last Admin Dose Admin Acetaminophen (Tylenol) 650 mg Q4H PRN ORAL fever 02/16/17 19:30 03/18/17 19:29 Acetaminophen/ Hydrocodone Bitart ([place] 5/325) 1 tab Q4H PRN ORAL Moderate Pain (Pain Scale 4-6) 02/17/17 08:15 02/24/17 08:14 02/18/17 10:39 Al Hydroxide/Mg Hydroxide (Mylanta II) 30 ml Q6H PRN ORAL dyspepsia 02/16/17 19:30 03/18/17 19:29 Amlodipine Besylate (Norvasc) 10 mg DAILY ORAL 02/17/17 09:00 03/19/17 08:59 02/19/17 11:33 Atorvastatin Calcium (Lipitor) 20 mg BEDTIME ORAL 02/16/17 23:00 03/18/17 22:59 02/18/17 20:20 Dextrose (Dextrose 50%) STAT PRN IV Hypoglycemia 02/16/17 19:30 03/18/17 19:29 Heparin Sodium (Porcine) (Heparin 5000 units/ml) 5,000 units EVERY 12 HOURS SUBQ 02/16/17 22:00 03/18/17 21:59 02/19/17 08:16 Hydralazine HCl (Apresoline) 50 mg TID ORAL 02/17/17 09:00 03/19/17 08:59 02/19/17 14:39 Insulin Aspart (NovoLOG) BEFORE MEALS AND HS SUBQ 02/17/17 00:00 03/19/17 00:00 02/19/17 11:49 Lidocaine (Lidoderm 5% PATCH) 1 patch DAILY TDERMAL 02/17/17 09:00 03/19/17 08:59 02/19/17 08:21 Lisinopril (Prinivil) 40 mg DAILY ORAL 02/17/17 09:00 03/19/17 08:59 02/19/17 11:36 Lorazepam (Ativan 2mg/ml 1ml) 0.5 mg Q4H PRN IV For Anxiety 02/16/17 19:30 02/23/17 19:29 Morphine Sulfate (Morphine Sulfate) 1 mg Q4H PRN IVP severe Pain 02/17/17 11:30 02/24/17 11:29 Nitroglycerin (Ntg) 0.4 mg Q5M PRN SL chest pain 02/16/17 19:30 03/18/17 19:29 Ondansetron HCl (Zofran) 4 mg Q6H PRN IVP Nausea & Vomiting 02/16/17 19:30 03/18/17 19:29 Polyethylene Glycol (Miralax) 17 gm HSPRN PRN ORAL Constipation 02/16/17 19:30 03/18/17 19:29 Risperidone (RisperDAL) 4 mg BEDTIME ORAL 02/18/17 21:00 03/19/17 08:59 02/18/17 20:20 Zolpidem Tartrate (Ambien) 5 mg HSPRN PRN ORAL Insomnia 02/16/17 19:30 02/23/17 19:29 BHARGAVI MACIEL Feb 19, 2017 16:35
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
--- NOTE | 2017-02-19 16:54 | General Progress Note ---
Assessment/Plan Assessment/Plan (1) Intractable pain (2) L1 compression fracture (3) Lumbar spondylosis Pt will be continued on [place] and Morphine as needed. D/w Dr. Daily and he concurred. Subjective Date patient seen: Feb 19, 2017 Time patient seen: 04:00 Allergies: Coded Allergies: NO KNOWN ALLERGIES (Unverified Allergy, Unknown, 05/02/15) Subjective REVIEW OF SYSTEMS: Denies rash, fever, chills, sweating, dizziness, drowsiness, blurred vision, sore throat, or change in weight. No shortness of breath or chest pain. No nausea, vomiting, or blood in stool or urine. No dysuria. He is complaining of low back pain. SUBJECTIVE: Pt is laying in bed no signs of pain or distress at this time. Pain is stable on the medications. Objective Last 24 Hour Vital Signs Date Time Temp Pulse Resp B/P (MAP) Pulse Ox O2 Delivery O2 Flow Rate FiO2 02/19/17 16:00 98.1 75 19 123/73 Room Air 02/19/17 14:39 130/65 02/19/17 12:00 97.7 70 18 137/84 99 Room Air 02/19/17 11:36 137/84 02/19/17 11:33 89 137/84 02/19/17 08:15 117/62 02/19/17 08:08 97.5 102 117/62 98 Room Air 02/18/17 20:00 98.2 73 18 130/75 100 Room Air Laboratory Tests 02/19/17 05:20: White Blood Count 10.2, Red Blood Count 4.44L, Hemoglobin 11.6L, Hematocrit 36.4L, Mean Corpuscular Volume 82, Mean Corpuscular Hemoglobin 26.0L, Mean Corpuscular Hemoglobin Concent 31.7L, Red Cell Distribution Width 14.8, Platelet Count 290, Mean Platelet Volume 7.9, Neutrophils (%) (Auto) 54.6, Lymphocytes (%) (Auto) 31.9, Monocytes (%) (Auto) 6.3, Eosinophils (%) (Auto) 6.2H, Basophils (%) (Auto) 1.1, Sodium Level 140, Potassium Level 3.9, Chloride Level 103, Carbon Dioxide Level 25, Anion Gap 12, Blood Urea Nitrogen 15, Creatinine 1.0, Estimat Glomerular Filtration Rate , Glucose Level 152H, Calcium Level 8.7 Height (Feet): 5 Height (Inches): 10.00 Weight (Pounds): 160 Objective GENERAL: Alert, awake, and oriented. HEENT: PERRLA. NECK: Range of motion is full in all directions. No tenderness to paracervical muscles. No adenopathy. LUNGS: Clear. HEART: S1 and S2 regular. ABDOMEN: Benign. BACK: Range of motion is decreased in flexion and extension with tenderness to paraspinal muscles. No tenderness to trapezius or rhomboid muscles. EXTREMITIES: No cyanosis. No clubbing. JOSE SMITH Feb 19, 2017 16:54
--- NOTE | 2017-02-19 16:57 | General Progress Note ---
Assessment/Plan Status: stable, progressing Assessment/Plan the pt was more cooperative and less irritable -cont current tx Subjective Constitutional: Reports: malaise, weakness Neurologic/Psychiatric: Reports: anxiety, depressed, emotional problems Allergies: Coded Allergies: NO KNOWN ALLERGIES (Unverified Allergy, Unknown, 05/02/15) All Systems: reviewed and negative except above Objective Last 24 Hour Vital Signs Date Time Temp Pulse Resp B/P (MAP) Pulse Ox O2 Delivery O2 Flow Rate FiO2 02/19/17 16:00 98.1 75 19 123/73 Room Air 02/19/17 14:39 130/65 02/19/17 12:00 97.7 70 18 137/84 99 Room Air 02/19/17 11:36 137/84 02/19/17 11:33 89 137/84 02/19/17 08:15 117/62 02/19/17 08:08 97.5 102 117/62 98 Room Air 02/18/17 20:00 98.2 73 18 130/75 100 Room Air Laboratory Tests 02/19/17 05:20: White Blood Count 10.2, Red Blood Count 4.44L, Hemoglobin 11.6L, Hematocrit 36.4L, Mean Corpuscular Volume 82, Mean Corpuscular Hemoglobin 26.0L, Mean Corpuscular Hemoglobin Concent 31.7L, Red Cell Distribution Width 14.8, Platelet Count 290, Mean Platelet Volume 7.9, Neutrophils (%) (Auto) 54.6, Lymphocytes (%) (Auto) 31.9, Monocytes (%) (Auto) 6.3, Eosinophils (%) (Auto) 6.2H, Basophils (%) (Auto) 1.1, Sodium Level 140, Potassium Level 3.9, Chloride Level 103, Carbon Dioxide Level 25, Anion Gap 12, Blood Urea Nitrogen 15, Creatinine 1.0, Estimat Glomerular Filtration Rate , Glucose Level 152H, Calcium Level 8.7 Height (Feet): 5 Height (Inches): 10.00 Weight (Pounds): 160 General Appearance: no apparent distress, alert Neurologic: alert, oriented x 3, responsive, depressed affect Rebeca David M.D. Feb 19, 2017 16:57
[2017-02-19 20:53] VITALS: BP 110/67
[2017-02-19] MEDS: Atorvastatin 20mg tab ORAL SCH (21:59)
[2017-02-20 04:31] VITALS: BP 177/100
[2017-02-20 05:35] LABS: BASOPHILS % (AUTO) 1.2 % (0.0-2.0); EOSINOPHILS % (AUTO) 6.1 % (0.0-3.0); LYMPHOCYTES % (AUTO) 26.1 % (20.0-45.0); MEAN CORPUSCULAR HEMOGLOBIN 26.5 PG (27.0-31.0); MEAN CORPUSCULAR HGB CONC 32.9 G/DL (32.0-36.0); MEAN CORPUSCULAR VOLUME 81 FL (80-99); MEAN PLATELET VOLUME 7.5 FL (6.5-10.1); MONOCYTES % (AUTO) 6.1 % (1.0-10.0); NEUTROPHILS % (AUTO) 60.6 % (45.0-75.0); PLATELET COUNT 284 K/UL (150-450); RED BLOOD COUNT 4.13 M/UL (4.70-6.10); RED CELL DISTRIBUTION WIDTH 15.2 % (11.6-14.8); WHITE BLOOD COUNT 9.2 K/UL (4.8-10.8)
[2017-02-20 05:52] LABS: ANION GAP 12 (5-15); CALCIUM 8.8 mg/dL (8.6-10.2); CARBON DIOXIDE 23 mEQ/L (20-30); CHLORIDE 105 mEQ/L (98-107); HEMOLYSIS 2; POTASSIUM 3.8 mEQ/L (3.4-4.9); SODIUM 140 mEQ/L (135-145)
[2017-02-20] MEDS: NovoLOG Insulin Flexpen SUBQ SCH ×4 (06:26→21:00)
[2017-02-20 08:00] VITALS: BP 102/65
[2017-02-20] MEDS: Lisinopril 20mg tab ORAL SCH (08:42)
[2017-02-20] MEDS: HydrALAZINE 50mg tab ORAL SCH ×3 (08:42→17:04)
[2017-02-20] MEDS: Heparin 5000 units/ml inj SUBQ SCH ×2 (08:44→21:00)
--- NOTE | 2017-02-20 10:40 | General Progress Note ---
Assessment/Plan Assessment/Plan (1) Intractable pain (2) L1 compression fracture (3) Lumbar spondylosis Pt will be continued on [place] and Morphine as needed. D/w Dr. Daily and he concurred. Subjective Date patient seen: Feb 20, 2017 Time patient seen: 08:45 - am Allergies: Coded Allergies: NO KNOWN ALLERGIES (Unverified Allergy, Unknown, 05/02/15) Subjective REVIEW OF SYSTEMS: Denies rash, fever, chills, sweating, dizziness, drowsiness, blurred vision, sore throat, or change in weight. No shortness of breath or chest pain. No nausea, vomiting, or blood in stool or urine. No dysuria. He is complaining of low back pain. SUBJECTIVE: Pt is in now acute distress or pain at this time. He had performed the MRI and was seen by Neurosurgeon who recommended Kyphoplasty. Objective Last 24 Hour Vital Signs Date Time Temp Pulse Resp B/P (MAP) Pulse Ox O2 Delivery O2 Flow Rate FiO2 02/20/17 08:48 84 02/20/17 08:42 102/65 02/20/17 08:42 102/65 02/20/17 08:42 117 102/65 02/20/17 08:00 97.0 117 20 102/65 97 Room Air 02/20/17 04:31 02/19/17 20:53 98.1 82 20 110/67 96 Room Air 02/19/17 18:44 131/65 02/19/17 16:00 98.1 75 19 123/73 Room Air 02/19/17 14:39 130/65 02/19/17 12:00 97.7 70 18 137/84 99 Room Air 02/19/17 11:36 137/84 02/19/17 11:33 89 137/84 Laboratory Tests 02/20/17 05:00: White Blood Count 9.2, Red Blood Count 4.13L, Hemoglobin 11.0L, Hematocrit 33.3L , Mean Corpuscular Volume 81, Mean Corpuscular Hemoglobin 26.5L, Mean Corpuscular Hemoglobin Concent 32.9, Red Cell Distribution Width 15.2H, Platelet Count 284, Mean Platelet Volume 7.5, Neutrophils (%) (Auto) 60.6, Lymphocytes (%) (Auto) 26.1, Monocytes (%) (Auto) 6.1, Eosinophils (%) (Auto) 6.1H, Basophils (%) (Auto) 1.2, Sodium Level 140, Potassium Level 3.8, Chloride Level 105, Carbon Dioxide Level 23, Anion Gap 12, Blood Urea Nitrogen 18, Creatinine 1.0, Estimat Glomerular Filtration Rate , Glucose Level 233H, Calcium Level 8.8 Height (Feet): 5 Height (Inches): 10.00 Weight (Pounds): 160 Objective GENERAL: Alert, awake, and oriented. HEENT: PERRLA. NECK: Range of motion is full in all directions. No tenderness to paracervical muscles. No adenopathy. LUNGS: Clear. HEART: S1 and S2 regular. ABDOMEN: Benign. BACK: Range of motion is decreased in flexion and extension with tenderness to paraspinal muscles. No tenderness to trapezius or rhomboid muscles. EXTREMITIES: No cyanosis. No clubbing. Procedure: MRI L Spine no Contrast Findings: There is a moderate compression fracture of L1 vertebra which is diminished in height by about 50%. There is T2 hyperintensity/T1 hypointensity within the visualized noncompressed portion of the vertebra consistent with bone marrow edema and indicative of an acute fracture. There is edema within the vertebral body itself. There is edema within the pedicles bilaterally. The fracture is transpedicular on the right. There are old transverse osseous fractures bilaterally. There is retropulsion that is mild compressing the anterior part thecal sac. There is slight abutting of the distal aspect of the spinal cord which terminates at about this level. The tip of the conus is seen just at the lower margin of the L1 vertebra. There is no evidence of spinal cord edema or significant compression. There is no disc herniation. There is moderate hypertrophy of the lumbar facets at multiple levels. This results in multilevel foraminal stenosis and narrowing of the lateral recess. Impression: Acute L1 vertebral fracture with 50% loss of height, mild retropulsion and slight abutting of the cord. The fracture is probably acute on chronic. Multilevel facet arthropathy and narrowing of the neural foramen and lateral recess degenerative in nature JOSE SMITH Feb 20, 2017 10:40
[2017-02-20 12:00] VITALS: BP 127/70
--- NOTE | 2017-02-20 13:03 | General Progress Note ---
Assessment/Plan Problem List: (1) Fracture of body of vertebra SNOMED: 799661766 (2) Intractable low back pain ICD Codes: M54.5 - Low back pain SNOMED: 71347757619342232 (3) Generalized weakness ICD Codes: R53.1 - Weakness SNOMED: 76386421 (4) Failure to thrive ICD Codes: R62.51 - Failure to thrive (child) SNOMED: 42939328 Status: stable, progressing, tolerating diet Assessment/Plan ot pt diet pain control cbc bmp am dc if clear by sx Subjective Constitutional: Reports: weakness Allergies: Coded Allergies: NO KNOWN ALLERGIES (Unverified Allergy, Unknown, 05/02/15) All Systems: reviewed and negative except above Subjective calm in bed Objective Last 24 Hour Vital Signs Date Time Temp Pulse Resp B/P (MAP) Pulse Ox O2 Delivery O2 Flow Rate FiO2 02/20/17 12:00 97.5 74 21 127/70 100 Room Air 02/20/17 08:48 84 02/20/17 08:42 102/65 02/20/17 08:42 102/65 02/20/17 08:42 117 102/65 02/20/17 08:00 97.0 117 20 102/65 97 Room Air 02/20/17 04:31 02/19/17 20:53 98.1 82 20 110/67 96 Room Air 02/19/17 18:44 131/65 02/19/17 16:00 98.1 75 19 123/73 Room Air 02/19/17 14:39 130/65 Laboratory Tests 02/20/17 05:00: White Blood Count 9.2, Red Blood Count 4.13L, Hemoglobin 11.0L, Hematocrit 33.3L , Mean Corpuscular Volume 81, Mean Corpuscular Hemoglobin 26.5L, Mean Corpuscular Hemoglobin Concent 32.9, Red Cell Distribution Width 15.2H, Platelet Count 284, Mean Platelet Volume 7.5, Neutrophils (%) (Auto) 60.6, Lymphocytes (%) (Auto) 26.1, Monocytes (%) (Auto) 6.1, Eosinophils (%) (Auto) 6.1H, Basophils (%) (Auto) 1.2, Sodium Level 140, Potassium Level 3.8, Chloride Level 105, Carbon Dioxide Level 23, Anion Gap 12, Blood Urea Nitrogen 18, Creatinine 1.0, Estimat Glomerular Filtration Rate , Glucose Level 233H, Calcium Level 8.8 Height (Feet): 5 Height (Inches): 10.00 Weight (Pounds): 160 General Appearance: lethargic EENT: normal ENT inspection Neck: normal alignment Cardiovascular: normal peripheral pulses, normal rate, regular rhythm Respiratory/Chest: chest wall non-tender, lungs clear, normal breath sounds Abdomen: normal bowel sounds, non tender, soft Extremities: normal inspection Edema: no edema noted Arm (L), no edema noted Arm (R), no edema noted Leg (L), no edema noted Leg (R), no edema noted Pedal (L), no edema noted Pedal (R), no edema noted Generalized Neurologic: motor weakness Skin: normal pigmentation, warm/dry ROSCOE PRESTON Feb 20, 2017 13:03
--- NOTE | 2017-02-20 13:34 | Pulmonology Progress Note ---
Assessment/Plan Problems: (1) Vertebral fracture, closed (2) Failure to thrive (3) Generalized weakness (4) Intractable low back pain Assessment/Plan no new complains doing better awaiting for braces all ntes reviewed d/w consultants. dc to [place] pending Subjective ROS Limited/Unobtainable: No Constitutional: Reports: no symptoms HEENT: Repors: no symptoms Respiratory: Reports: no symptoms Allergies: Coded Allergies: NO KNOWN ALLERGIES (Unverified Allergy, Unknown, 05/02/15) Objective Last 24 Hour Vital Signs Date Time Temp Pulse Resp B/P (MAP) Pulse Ox O2 Delivery O2 Flow Rate FiO2 02/20/17 12:00 97.5 74 21 127/70 100 Room Air 02/20/17 08:48 84 02/20/17 08:42 102/65 02/20/17 08:42 102/65 02/20/17 08:42 117 102/65 02/20/17 08:00 97.0 117 20 102/65 97 Room Air 02/20/17 04:31 02/19/17 20:53 98.1 82 20 110/67 96 Room Air 02/19/17 18:44 131/65 02/19/17 16:00 98.1 75 19 123/73 Room Air 02/19/17 14:39 130/65 General Appearance: WD/WN HEENT: normocephalic, atraumatic Respiratory/Chest: chest wall non-tender, lungs clear Cardiovascular: normal peripheral pulses, normal rate Abdomen: normal bowel sounds, soft, non tender Genitourinary: normal external genitalia Extremities: no cyanosis Skin: no rash Neurologic/Psychiatric: 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 normal, no motor/sensory deficits Lymphatic: no neck adenopathy Laboratory Tests 02/20/17 05:00: White Blood Count 9.2, Red Blood Count 4.13L, Hemoglobin 11.0L, Hematocrit 33.3L , Mean Corpuscular Volume 81, Mean Corpuscular Hemoglobin 26.5L, Mean Corpuscular Hemoglobin Concent 32.9, Red Cell Distribution Width 15.2H, Platelet Count 284, Mean Platelet Volume 7.5, Neutrophils (%) (Auto) 60.6, Lymphocytes (%) (Auto) 26.1, Monocytes (%) (Auto) 6.1, Eosinophils (%) (Auto) 6.1H, Basophils (%) (Auto) 1.2, Sodium Level 140, Potassium Level 3.8, Chloride Level 105, Carbon Dioxide Level 23, Anion Gap 12, Blood Urea Nitrogen 18, Creatinine 1.0, Estimat Glomerular Filtration Rate , Glucose Level 233H, Calcium Level 8.8 Current Medications Medications (Trade) Dose Ordered Sig/Lindsey Route PRN Reason Start Time Stop Time Status Last Admin Dose Admin Acetaminophen (Tylenol) 650 mg Q4H PRN ORAL fever 02/16/17 19:30 03/18/17 19:29 Acetaminophen/ Hydrocodone Bitart ([place] 5/325) 1 tab Q4H PRN ORAL Moderate Pain (Pain Scale 4-6) 02/17/17 08:15 02/24/17 08:14 02/18/17 10:39 Al Hydroxide/Mg Hydroxide (Mylanta II) 30 ml Q6H PRN ORAL dyspepsia 02/16/17 19:30 03/18/17 19:29 Amlodipine Besylate (Norvasc) 10 mg DAILY ORAL 02/17/17 09:00 03/19/17 08:59 02/19/17 11:33 Atorvastatin Calcium (Lipitor) 20 mg BEDTIME ORAL 02/16/17 23:00 03/18/17 22:59 02/19/17 21:59 Dextrose (Dextrose 50%) STAT PRN IV Hypoglycemia 02/16/17 19:30 03/18/17 19:29 Heparin Sodium (Porcine) (Heparin 5000 units/ml) 5,000 units EVERY 12 HOURS SUBQ 02/16/17 22:00 03/18/17 21:59 02/20/17 08:44 Hydralazine HCl (Apresoline) 50 mg TID ORAL 02/17/17 09:00 03/19/17 08:59 02/19/17 18:44 Insulin Aspart (NovoLOG) BEFORE MEALS AND HS SUBQ 02/17/17 00:00 03/19/17 00:00 02/19/17 22:06 Lidocaine (Lidoderm 5% PATCH) 1 patch DAILY TDERMAL 02/17/17 09:00 03/19/17 08:59 02/20/17 08:43 Lisinopril (Prinivil) 40 mg DAILY ORAL 02/17/17 09:00 03/19/17 08:59 02/19/17 11:36 Lorazepam (Ativan 2mg/ml 1ml) 0.5 mg Q4H PRN IV For Anxiety 02/16/17 19:30 02/23/17 19:29 Morphine Sulfate (Morphine Sulfate) 1 mg Q4H PRN IVP severe Pain 02/17/17 11:30 02/24/17 11:29 Nitroglycerin (Ntg) 0.4 mg Q5M PRN SL chest pain 02/16/17 19:30 03/18/17 19:29 Ondansetron HCl (Zofran) 4 mg Q6H PRN IVP Nausea & Vomiting 02/16/17 19:30 03/18/17 19:29 Polyethylene Glycol (Miralax) 17 gm HSPRN PRN ORAL Constipation 02/16/17 19:30 03/18/17 19:29 Risperidone (RisperDAL) 4 mg BEDTIME ORAL 02/18/17 21:00 03/19/17 08:59 02/19/17 21:59 Zolpidem Tartrate (Ambien) 5 mg HSPRN PRN ORAL Insomnia 02/16/17 19:30 02/23/17 19:29 BHARGAVI MACIEL Feb 20, 2017 13:34
--- NOTE | 2017-02-20 14:32 | General Progress Note ---
Assessment/Plan Status: stable, progressing Assessment/Plan the pt was more cooperative and less irritable -cont current tx Subjective Constitutional: Reports: weakness Allergies: Coded Allergies: NO KNOWN ALLERGIES (Unverified Allergy, Unknown, 05/02/15) Subjective the pt is doing better. calmer more engaged. Objective Last 24 Hour Vital Signs Date Time Temp Pulse Resp B/P (MAP) Pulse Ox O2 Delivery O2 Flow Rate FiO2 02/20/17 13:00 127/70 02/20/17 12:00 97.5 74 21 127/70 100 Room Air 02/20/17 08:48 84 02/20/17 08:42 102/65 02/20/17 08:42 102/65 02/20/17 08:42 117 102/65 02/20/17 08:00 97.0 117 20 102/65 97 Room Air 02/20/17 04:31 02/19/17 20:53 98.1 82 20 110/67 96 Room Air 02/19/17 18:44 131/65 02/19/17 16:00 98.1 75 19 123/73 Room Air 02/19/17 14:39 130/65 Laboratory Tests 02/20/17 05:00: White Blood Count 9.2, Red Blood Count 4.13L, Hemoglobin 11.0L, Hematocrit 33.3L , Mean Corpuscular Volume 81, Mean Corpuscular Hemoglobin 26.5L, Mean Corpuscular Hemoglobin Concent 32.9, Red Cell Distribution Width 15.2H, Platelet Count 284, Mean Platelet Volume 7.5, Neutrophils (%) (Auto) 60.6, Lymphocytes (%) (Auto) 26.1, Monocytes (%) (Auto) 6.1, Eosinophils (%) (Auto) 6.1H, Basophils (%) (Auto) 1.2, Sodium Level 140, Potassium Level 3.8, Chloride Level 105, Carbon Dioxide Level 23, Anion Gap 12, Blood Urea Nitrogen 18, Creatinine 1.0, Estimat Glomerular Filtration Rate , Glucose Level 233H, Calcium Level 8.8 Height (Feet): 5 Height (Inches): 10.00 Weight (Pounds): 160 General Appearance: no apparent distress, alert Neurologic: alert, oriented x 3, responsive, depressed affect Rebeca David M.D. Feb 20, 2017 14:32
[2017-02-20 16:00] VITALS: BP 127/63
[2017-02-20] MEDS ORDERED: NORCO 5-325 TA1 EAC1 ORAL (18:12)
[2017-02-20] MEDS ORDERED: NOVOLOG100 UNIT/3 SUBQ (18:13)
[2017-02-20] MEDS ORDERED: MIRALAX17 G2 ORAL (18:15)
[2017-02-20] MEDS ORDERED: LIDODERM700 M1 TOPIC (18:15)
[2017-02-20] MEDS ORDERED: AMBIEN5 MG ORAL (18:16)
[2017-02-20] MEDS ORDERED: RISPERDAL2 MG ORAL (18:16)
[2017-02-20 20:00] VITALS: BP 132/65
[2017-02-20] MEDS: Atorvastatin 20mg tab ORAL SCH (21:00)
--- NOTE | 2017-02-24 11:58 | Discharge Summary ---
Discharge Summary Hospital Course Date of Admission Feb 16, 2017 at 20:59 Date of Discharge Feb 20, 2017 at 20:45 Admitting Diagnosis Intractable pain HPI Gabriel ClintonJr is a 71 year old male who was admitted on Feb 16, 2017 at 20:59 for Intractable Pain Hospital Course dc summary #[id number] Discharge Medications Continued Medications: Acetaminophen (Tylenol) 325 Mg Tab 650 MG ORAL Q6H, #30 TAB 0 Refills Al Hydroxide/mg Hydroxide (Mag-Al Liquid) 30 Ml Susp 30 ML GT Q4HR Amlodipine Besylate (Norvasc) 10 Mg Tab 10 MG ORAL DAILY, TAB Atorvastatin Calcium* (Lipitor*) 20 Mg Tablet 20 MG ORAL BEDTIME, TAB Hydralazine Hcl* (Hydralazine Hcl*) 50 Mg Tablet 50 MG ORAL TID, TAB Lisinopril* (Lisinopril*) 40 Mg Tablet 40 MG ORAL DAILY, TAB Nitroglycerin (Nitrostat) 0.4 Mg Tab.subl 0.4 MG SL Q5M X3 DOSES, #25 TAB 0 Refills Discontinued Medications: Acetaminophen (Tylenol) 325 Mg Tab 325 MG ORAL Q4HR, #30 TAB 0 Refills Clopidogrel Bisulfate* (Plavix*) 75 Mg Tablet 75 MG ORAL DAILY, TAB Digoxin* (Digoxin*) 125 Mcg Tablet 125 MCG ORAL DAILY, TAB Hydrochlorothiazide* (Hydrochlorothiazide*) 25 Mg Tablet 25 MG ORAL DAILY, TAB Hydroxyzine HCl (Hydroxyzine HCl) 25 Mg Tab 25 MG ORAL TID, TAB Insulin Detemir (Levemir) 100 Unit/1 Ml Vial 20 UNITS SUBQ BEFORE DINNER, VIAL Insulin Detemir (Levemir) 100 Unit/1 Ml Vial 40 UNITS SUBQ ACBREAKFAST for 1 Day, VIAL Magnesium Hydroxide* (Milk Of Magnesia*) 400 Mg/5 Ml Oral.susp 30 ML ORAL DAILY PRN for Constipation, ML Magnesium Oxide (Magnesium Oxide) 400 Mg Tablet 400 MG ORAL BID, #30 TAB 0 Refills Metformin Hcl* (Metformin Hcl*) 850 Mg Tablet 850 MG ORAL BID, TAB Potassium Chloride* (K-Dur*) 20 Meq Tab.er.prt 20 MEQ ORAL DAILY, #7 TAB 0 Refills Discharge Condition Upon Discharge: stable Discharge Disposition Patient was discharged to SNF Discharge Diagnoses: Discharge Instructions Discharge Instructions Special Instructions I have been assigned to complete a D/C Summary on this account. I was not involved in the patient management Kristyn Alicea NP ([place]te[place]) Feb 24, 2017 11:58
--- NOTE | 2017-02-25 05:30 | Discharge Summary 2 SIG ---
DATE OF ADMISSION: 02/16/2017 DATE OF DISCHARGE: 02/20/2017 REASON FOR ADMISSION: 71 years old male presented from [facility] for evaluation of low back pain for two weeks. The patient complained of the pain, 10/10. Pain worse with walking and lying flat at night. The patient denied numbness and tingling in extremity. Denied difficulty urinating or urinary incontinence. No fevers. No chills. No abdominal pain. The patient with a past medical history of hypertension, schizoaffective disorder, hyperlipidemia, and diabetes. No history of cancer. The patient denied tingling or loss of sensation , denied gross motor movement loss. He denied incontinence of bowel or the bladder. No chest pain. No palpitation. No blackouts. No change in vision, dizziness, paresthesia, or sudden severe headache. In the emergency department, vital signs were stable. Pulse oximetry was stable on the room air. CT of the L-spine revealed fracture of the L1 vertebral body, acute versus subacute versus chronic with some edema in the soft tissues. WBC -13.7 and glucose -238. The patient was admitted for further management. ADMITTING DIAGNOSES: 1. Intractable back pain. 2. L1 compression fracture. HOSPITAL COURSE: The patient was admitted. Home medication for blood pressure, blood sugar as well as the statin resumed. Pain management provided. Pain specialist consult was requested. Analgesic regimen was optimized as per pain specialist recommendations. Pain was controlled. The patient was seen by orthopedic surgeon. According to orthopedic surgeon, he preferred to treat the patient conservatively. No neurovascular compromise. He will prefer 6-12 weeks time to let the fracture to heal and then afterwards the patient can start physical therapy. Subsequently, the spine surgery consult was requested as a second opinion. MRI of the L-spine revealed acute L1 vertebral compression fracture. According to spine surgeon, fracture was about three weeks old. The patient was not an ideal candidate for kyphoplasty. He recommended TLSO bracing and follow up every two to three weeks with x-ray of the L-spine until documented healing of the fracture after which the patient can begin physical therapy. The patient agreed with plan. Psychiatrist had seen and evaluated the patient and diagnosed the patient with psychosis. Patient was started on Risperdal. Blood pressure and blood sugar were stable. Initially mild leukocytosis, likely reactive, resolved. The patient was stable for discharge. DISCHARGE DIAGNOSES: 1. Acute L1 vertebral compression fracture. 2. Lumbar spondylosis. 3. Intractable pain. 4. Schizoaffective disorder/psychosis. 5. Hypertension. DISCHARGE MEDICATIONS: See medication reconciliation list. DISCHARGE INSTRUCTIONS: The patient was discharged to [facility]. FOLLOWUP: Follow up with medical doctor at the facility. Jeancarlos Herring D.O I have been assigned to dictate discharge summary on this account and I was not involved in the patient's management. Kristyn PatrickNyu Langone Health Systemcandi N.PCarolyne DR: Trixie JOB#: [id number] CC: [id number]
== END 2017-02-20 20:45 | DRG 551 ==
LOC: EDBD 18:25 → EMR 20:55 → 4E 20:59 → EDBEDREQ 21:46 → 4W 02-18 08:00 → 4E 02-20 11:31
DX: S32.018A Other fracture of first lumbar vertebra, initial encounter for closed fracture (principal); G93.40 Encephalopathy, unspecified; E11.9 Type 2 diabetes mellitus without complications; D64.9 Anemia, unspecified; I10 Essential (primary) hypertension; R62.7 Adult failure to thrive; Y09 Assault by unspecified means; F25.9 Schizoaffective disorder, unspecified; Z86.73 Personal history of transient ischemic attack (TIA), and cerebral infarction without residual deficits; Z79.02 Long term (current) use of antithrombotics/antiplatelets; M47.896 Other spondylosis, lumbar region
CPT/HCPCS: 36415; 72131; 72148; 80048; 80053; 80061; 82962; 85025; 97803; 99285; J1815